=== PATIENT | male | born 1990 | race Caucasian/White ===

== ENCOUNTER 2018-09-03 21:27 | Emergency (ER) | payer BC ==
[2018-09-03] MEDS ORDERED: DEXAMETHASONE SOD PHOS INJ 10 MG/1 ML VIAL IM ONE (23:46)
[2018-09-03] MEDS ORDERED: IBUPROFEN 600 MG TABLET PO ONE (23:46)
[2018-09-03] MEDS ORDERED: PENICILLIN G BENZATHINE 1.2 MILLION UNIT/2 ML DISP.SYRIN IM ONE (23:47)
--- NOTE | 2018-09-03 23:49 | ER Document Report ---
HPI - HPI Patient complains to provider of: sore throat, fever Time Seen by Provider: 09/03/18 23:34 Pain Level: 2 Context: Patient is a 28-year-old male that comes to the chief complaint of sore throat for 4 days. He states he developed a fever yesterday. He denies cough, congestion, he states he is starting to get very swollen lymph nodes in the front of his neck which are painful. He denies any other complaints including headache, vomiting, chest pain, abdominal pain. He denies any daily medications or medical history. He denies any obvious sick contacts. - CONSTITUTIONAL Constitutional: REPORTS: Fever, Chills - EENT EENT: REPORTS: Sore Throat - x4 days Past Medical History - General Information source: Patient - Social History Smoking Status: Current Every Day Smoker Frequency of alcohol use: None Drug Abuse: None Lives with: Family Family History: Reviewed & Not Pertinent Patient has suicidal ideation: No Patient has homicidal ideation: No - Medical History Medical History: Negative Renal/ Medical History: Denies: Hx Peritoneal Dialysis Past Surgical History: Reports: Hx Cholecystectomy, Hx Oral Surgery - wisdom teeth, Hx Orthopedic Surgery - L femur as child - Immunizations Immunizations up to date: Yes Hx Diphtheria, Pertussis, Tetanus Vaccination: Yes Vertical Provider Document - CONSTITUTIONAL General Appearance: WD/WN, No Apparent Distress - HEENT HEENT: Atraumatic, Normocephalic. negative: Normal ENT Exam - Exudative pharyngitis noted, erythema of the soft palate and posterior pharynx noted, uvula is normal, no swelling suggesting peritonsillar abscess, patent airway. Remaining ENT exam unremarkable. - NECK Neck: Other - Bilateral anterior cervical adenopathy, slightly worse on the left - RESPIRATORY Respiratory: Breath Sounds Normal, No Respiratory Distress - CARDIOVASCULAR Cardiovascular: Regular Rate, Regular Rhythm, Tachycardia - Borderline tachycardia - GI/ABDOMEN Gastrointestinal: Abdomen Soft, Abdomen Non-Tender, No Organomegaly - BACK Back: Normal Inspection - MUSCULOSKELETAL/EXTREMETIES Musculoskeletal/Extremeties: MAEW, FROM, Non-Tender - NEURO Level of Consciousness: Awake, Alert, Appropriate - DERM Integumentary: Warm - Warm and slightly flushed, No Rash Course - Re-evaluation Re-evalutation: Patient meets all 4 Centor criteria for strep throat. Obvious lymphadenopathy, exudates, tonsillitis. No evidence of peritonsillar abscess at this time. No other concerning N normalities noted. No splenomegaly. Patient declines strep throat swab, after discussion of options he requests the penicillin G dose, he will also be given dexamethasone for his symptoms. Discussed follow-up and return precautions. Patient states understanding and agreement. - Vital Signs Vital signs: Temp Pulse Resp BP Pulse Ox 102.1 F H 113 H 17 139/85 H 95 09/03/18 22:05 09/03/18 22:05 09/03/18 22:05 09/03/18 22:05 09/03/18 22:05 Discharge - Discharge Clinical Impression: Exudative pharyngitis, Anterior cervical adenopathy Condition: Stable Disposition: HOME, SELF-CARE Additional Instructions: Your evaluation is consistent with strep throat. You have been medicated for this. You can take Tylenol or ibuprofen at home, drink plenty of fluids, and rest. Follow-up with primary care. Return for any concerning symptoms including increased pain, difficulty swallowing, or any other concerning or worsening symptoms. Forms: Return to Work
[2018-09-04 00:56] VITALS: BP 137/86
== END 2018-09-04 00:37 | disposition home or self-care (01) ==
LOC: ER 21:27
DX: J02.9 Acute pharyngitis, unspecified (principal); R59.0 Localized enlarged lymph nodes; R50.9 Fever, unspecified; F17.200 Nicotine dependence, unspecified, uncomplicated
CPT/HCPCS: 99283; 96372; J0561; J1100

== ENCOUNTER → 2019-02-19 | Outpatient (CLI) | payer BC ==
--- NOTE | 2019-02-19 15:36 | RADIOLOGY REPORT (SQ) ---
EXAM DESCRIPTION: CT HEAD WITHOUT COMPLETED DATE/TIME: 02/19/2019 3:21 pm REASON FOR STUDY: R51 ACUTE INTRACTABLE HEADACHE, UNSPECIFIED HEADACHE TYPE COMPARISON: None. TECHNIQUE: Axial images acquired through the brain without intravenous contrast. Images reviewed wi th bone, brain and subdural windows. Additional sagittal and coronal reconstructions were generated. Images stored on PACS. All CT scanners at this facility use dose modulation, iterative reconstruction, and/or weight based d osing when appropriate to reduce radiation dose to as low as reasonably achievable (ALARA). [facility]: Dose Right [facility]: CareDose [facility]: Dose Right [facility]: Teradose 4D [facility]: ID [employer] RADIATION DOSE: CT Rad equipment meets quality standard of care and radiation dose reduction techniq ues were employed. CTDIvol: 48.6 mGy. DLP: 929 mGy-cm. mGy. LIMITATIONS: None. FINDINGS: VENTRICLES: Normal size and contour. CEREBRUM: No masses. No hemorrhage. No midline shift. No evidence for acute infarction. Normal gra y/white matter differentiation. No areas of low density in the white matter. CEREBELLUM: No masses. No hemorrhage. No alteration of density. No evidence for acute infarction. EXTRAAXIAL SPACES: No fluid collections. No masses. ORBITS AND GLOBE: No intra- or extraconal masses. Normal contour of globe without masses. CALVARIUM: No fracture. PARANASAL SINUSES: No fluid or mucosal thickening. SOFT TISSUES: No mass or hematoma. OTHER: No other significant finding. IMPRESSION: NORMAL BRAIN CT WITHOUT CONTRAST. EVIDENCE OF ACUTE STROKE: NO. COMMENT: Quality ID # [id number]: Final reports with documentation of one or more dose reduction techniques (e.g., Automated exposure control, adjustment of the mA and/or kV according to patient size, use of iterative reconstruction technique) TECHNICAL DOCUMENTATION: JOB ID: [id number] [employer]- All Rights Reserved Reading location - IP/workstation name: [email or web address]
== END ==
LOC: RAD 14:49
PROVIDERS: ATTEND Nurse Practitioner Family
DX: R51 Headache (principal)
CPT/HCPCS: 70450